=== PATIENT | male | born 1995 | race Caucasian/White ===

== ENCOUNTER 2024-10-26 18:34 | Emergency (ER) | payer MEDICAID ==
[~2024-10-26] VITALS: Ht 185.4 cm; Wt 68.1 kg
[2024-10-26 18:47] VITALS: TEMP 97.1
[2024-10-26 19:08] LABS: EOSINOPHILS % (AUTO) 0.1 % (1.0-6.0); HEMATOCRIT 50.2 % (41-53); HEMOGLOBIN 17.1 g/dL (13.5-17.5); LYMPHOCYTES # (AUTO) 0.6 K/uL (1.0-4.8); LYMPHOCYTES % (AUTO) 3.7 % (22.0-44.0); MEAN CORPUSCULAR HEMOGLOBIN 29.8 pg (26.0-34.0); MEAN CORPUSCULAR VOLUME 88 fL (80-100); MONOCYTES # (AUTO) 0.5 K/uL (0.1-1.0); MONOCYTES % (AUTO) 3.2 % (2.0-9.0); NEUTROPHILS # (AUTO) 14.1 K/uL (1.8-7.7); PLATELET COUNT (AUTO) 222 K/uL (150-450); RED BLOOD CELL COUNT(AUTO) 5.72 MIL/uL (4.50-5.90); RED CELL DISTRIBUTION WIDTH 13.5 % (11.5-14.5); WHITE BLOOD COUNT (AUTO) 15.1 K/uL (4.5-11.0)
[2024-10-26 19:09] LABS: COVID AG,FIA SOURCE NASAL SWAB
[2024-10-26 19:27] LABS: ALBUMIN 4.6 g/dL (3.4-5.0); BILIRUBIN,DIRECT 0.3 mg/dL (0.00-0.20); TOTAL PROTEIN, SERUM 8.3 g/dL (6.4-8.2)
[2024-10-26 19:42] LABS: ANION GAP 10 mmol/L (8-16); CARBON DIOXIDE 34 mmol/L (22-29); CHLORIDE 97 mmol/L (98-107); CREATININE 1.25 mg/dL (0.60-1.30); GLOMERULAR FILTR. RATE CALC > 60 mL/min (>60); GLUCOSE,RANDOM 127 mg/dL (70-110); LIPASE 44 U/L (16-77); POTASSIUM 3.9 mmol/L (3.5-5.1); SODIUM SERUM 141 mmol/L (136-145); UREA NITROGEN, BLOOD 20 mg/dL (7-18)
[2024-10-26 19:44] LABS: INFLUENZA TYPE A NEGATIVE FOR TYPE A (NEGATIVE); INFLUENZA TYPE B NEGATIVE FOR TYPE B (NEGATIVE)
[2024-10-26 19:57] LABS: SARS-COV2 (COVID) ANTIGEN,FIA Negative (Negative)
[2024-10-26 22:30] VITALS: BP 132/76; PULSE 92; RESP 19; O2SAT 96
[2024-10-26] MEDS: ONDANSETRON 4 MG TABLET PO ONE (22:32)
[2024-10-26] MEDS: LOPERAMIDE HCL 2 MG CAPSULE PO ONE (23:36)
[2024-10-27 00:03] LABS: APPEARANCE,URINE CLEAR (CLEAR); BILIRUBIN,URINE NEGATIVE (NEGATIVE); COLOR,URINE YELLOW (YELLOW); GLUCOSE, URINE (UA) NEGATIVE (NEGATIVE); KETONES,URINE 80-100 mg/dL (NEGATIVE); LEUKOCYTE ESTERASE ,URINE NEGATIVE (NEGATIVE); NITRATE,URINE NEGATIVE (NEGATIVE); OCCULT BLOOD,URINE NEGATIVE (NEGATIVE); PH,URINE 6.5 (5.0-8.0); PROTEIN,URINE 100-200,SEE CONFIRM mg/dL (NEGATIVE); UROBILINOGEN,URINE <=1.0 mg/dL (<=1.0)
[2024-10-27 00:10] LABS: ALCOHOL, URINE DRUG SCREEN NEGATIVE (NEGATIVE); AMPHET/METH SCREEN,URINE NEGATIVE (NEGATIVE); BARBITURATE SCREEN, URINE NEGATIVE (NEGATIVE); BENZODIAZEPINES SCREEN,URINE NEGATIVE (NEGATIVE); CANNABINOID SCREEN,URINE POSITIVE (NEGATIVE); COCAINE SCREEN,URINE POSITIVE (NEGATIVE); METHADONE SCREEN, URINE NEGATIVE (NEGATIVE); OPIATE SCREEN,URINE NEGATIVE (NEGATIVE); PHENCYCLIDINE SCREEN,URINE NEGATIVE (NEGATIVE)
[2024-10-27 00:12] LABS: SULFOSALICYLIC ACID,URINE 2+ (Negative)
[2024-10-27 00:13] LABS: PH,URINE DRUG SCREEN 6.5 (5.0-8.0)
[2024-10-27 00:15] LABS: BACTERIA,URINE Few /HPF (None Seen); RBC,URINE 0-2 /HPF (0-2); SQUAMOUS EPITHELIAL CELL,UR Rare /LPF (None Seen); WBC,URINE 0-2 /HPF (0-5)
[2024-10-27] MEDS: HALOPERIDOL LACTATE 5 MG/ML VIAL IM ONE (00:17)
[2024-10-27] MEDS ORDERED: ONDA-104 PO (01:43)
== END 2024-10-27 01:49 | disposition home or self-care (01) ==
LOC: EMS 18:34
DX: K52.9 Noninfective gastroenteritis and colitis, unspecified (principal); R44.0 Auditory hallucinations; Z20.822 Contact with and (suspected) exposure to COVID-19
CPT/HCPCS: 99283; 87426; 80048; 80076; 81001; 83690; 85025; 87804; 36415; 80307; 96372; J1630; Q0162; 81002; 81003